=== PATIENT | female | born 1995 | race Asian ===

== ENCOUNTER 2023-06-14 08:00 | Outpatient (CLI) | payer OTHER ==
[2023-06-14 18:14] LABS: H. PYLORIS ANTIGEN STL POSITIVE (Negative)
== END 2023-06-14 23:59 | disposition home or self-care (01) ==
LOC: LAB.N 08:00
PROVIDERS: ATTEND Family Medicine
DX: R19.7 Diarrhea, unspecified (principal)
CPT/HCPCS: 87045; 87046; 87329; 87338; 87427; 87493